=== PATIENT | female | born 1995 | race Caucasian/White ===

== ENCOUNTER 2017-03-15 16:28 | Emergency (ER) | payer MEDICAID ==
[~2017-03-15] VITALS: Ht 157.5 cm; Wt 65.5 kg
[2017-03-15 16:32] VITALS: Ht 157.5 cm; Wt 65.5 kg
[2017-03-15 17:04] LABS: URINE BLOOD (Dip) POC 2+ (NEGATIVE)
--- NOTE | 2017-03-15 17:54 | RADRPT ---
PROCEDURE: US Pelvis. CLINICAL INDICATION: Pelvic pain. TECHNIQUE: Multiple sonographic images of the pelvis were obtained utilizing a transabdominal and endovaginal technique. The images were reviewed on a PACS workstation. COMPARISON: None available. FINDINGS: The uterus is visualized and measures 6.4 x 3.3 x 4.0 cm. The endometrial echo complex is remarkable for an IUD in place and measures 5.0 mm. There is no evidence for free fluid. The right ovary has a normal echotexture and measures 3.7 x 2.1 x 2.0 cm. The left ovary has a normal echotexture and me asures 3.1 x 1.7 x 2.1 cm. No adnexal masses are noted. IMPRESSION: 1. IUD in the endometrium. 2. The ovaries and adnexa appear unremarkable. RPTAT: [facility] Physician Baldemar Date Time Electronically viewed and signed by Physician Baldemar on 03/15/2017 17:54 /
[2017-03-15] MEDS ORDERED: LIDOCAINE 2% (MDV) 20 ML INJ INJ ONE (18:00)
[2017-03-15] MEDS ORDERED: CEFTRIAXONE 250 MG INJ IM ONE (18:00)
[2017-03-15] MEDS ORDERED: AZITHROMYCIN 250 MG TAB PO ONE (18:00)
[2017-03-15] MEDS ORDERED: METR500T PO (18:42)
[2017-03-15] MEDS ORDERED: NITR-58 PO (18:47)
--- NOTE | 2017-03-15 18:47 | ERD ---
ER Documentation Chief Complaint Date/Time DATE: 03/15/17 TIME: 18:43 Chief Complaint Complains of vaginal pain with discharge HPI This is a 22-year-old female presents to the ER with vaginal discharge and vaginal pain that started earlier today. Patient states that discharge is yellow and smells badly. Patient uses an IUD and is currently sexually active with one partner in a monogamous relationship. Patient has not had her. She has been on the IUD. Patient denies any urinary frequency or dysuria. She denies any fevers or chills. Patient does admit to some pelvic pain. ROS 12 point review of systems was done, all negative except per HPI. Medications Home Meds Active Scripts Metronidazole* (Flagyl*) 500 Mg Tablet, 500 MG PO TID for 7 Days, TAB Prov:JANELL AGUIRRE Peri 03/15/17 Allergies Allergies: Coded Allergies: No Known Allergy (Unverified , 03/15/17) PMhx/Soc Medical and Surgical Hx: pt denies Medical Hx, pt denies Surgical Hx Hx Alcohol Use: No Hx Substance Use: No Hx Tobacco Use: No Smoking Status: Never smoker Physical Exam Vitals Vital Signs Date Time Temp Pulse Resp B/P Pulse Ox O2 Delivery O2 Flow Rate FiO2 03/15/17 16:32 97.6 84 20 121/75 98 Physical Exam GENERAL: The patient is well developed and appropriate for usual state of health , in no apparent distress. HEENT: Atraumatic. CHEST: Clear to auscultation bilaterally. There are no rales, wheezes or rhonchi. HEART: Regular rate and rhythm. No murmurs, clicks, rubs or gallops. ABDOMEN: Soft, nontender and nondistended. Good bowel sounds. No rebound or guarding. No gross peritonitis. No gross organomegaly or masses. No Armas sign or McBurney point tenderness. BACK: No midline or flank tenderness. : there is copious amounts of yellow vaginal discharge that is foul smelling. no vaginal lesions. negative chandelier sign SKIN: The skin is warm and dry. Results 24 hrs Laboratory Tests Test 03/15/17 17:08 Bedside Urine pH (LAB) 6.0 Bedside Urine Protein (LAB) 1+ Bedside Urine Glucose (UA) Negative Bedside Urine Ketones (LAB) Trace Bedside Urine Blood 2+ Bedside Urine Nitrite (LAB) Negative Bedside Urine Leukocyte Esterase (L 1+ Current Medications Medications (Trade) Dose Ordered Sig/Jessica Route PRN Reason Start Time Stop Time Status Last Admin Dose Admin Ceftriaxone Sodium (Rocephin) 250 mg ONCE ONCE IM 03/15/17 18:00 03/15/17 18:01 DC 03/15/17 18:14 Lidocaine (Xylocaine 2% (Mdv) 20 ml) 20 ml ONCE ONCE INJ 03/15/17 18:00 03/15/17 18:01 DC 03/15/17 18:14 Azithromycin (Zithromax) 1,000 mg ONCE ONCE PO 03/15/17 18:00 03/15/17 18:01 DC 03/15/17 18:14 Procedures/MDM This is a 22-year-old female presents to the ER with foul-smelling vaginal discharge. Patient likely has bacterial vaginosis, she will be sent home with metronidazole. Patient was also prophylactically and gonorrhea and her urine will be sent for chlamydia and gonorrhea. There is no evidence of ovarian torsion or ovarian cysts. Suspicion for pelvic inflammatory disease is low patient does not have any cervical motion tenderness. Patient is to follow-up with her primary care doctor within 1-2 days or return to ER sooner if symptoms worsen. My medical decision making was shared with the patient she understands and agrees with plan. Departure Diagnosis: Primary Impression: Vaginal discharge Additional Impression: UTI (urinary tract infection) Condition: Stable Patient Instructions: Vaginal Infection: Bacterial Vaginosis Additional Instructions: Llame al doctor MAANA y dee dwight LUIS FELIPE PARA DENTRO DE 1-2 FLETCHER.Dgale a la secretaria que nosotros le instruimos hacer esta luis felipe.Avise o llame si christiansen condicin se empeora antes de la luis felipe. Regresa aqui si peor o no mejor. JNAELL AGUIRRE Mar 15, 2017 18:47
[2017-03-15 19:13] VITALS: BP 116/61; PULSE 71; RESP 20
== END 2017-03-15 19:12 | disposition home or self-care (01) ==
LOC: FTE 16:28
DX: N89.8 Other specified noninflammatory disorders of vagina (principal); N39.0 Urinary tract infection, site not specified
CPT/HCPCS: 76856; 81003; 87591; J0696; Z7610; 96372